=== PATIENT | female | born 1985 | race Native Hawaiian/Other Pacific Islander ===

== ENCOUNTER 2023-08-09 13:39 | Outpatient (CLI) | payer OTHER ==
[2023-08-09 14:27] LABS: Appearance,Urine Cloudy (Clear); Bacteria,Urine Rare /hpf; Bilirubin,Urine Negative (Negative); Blood,Urine Moderate (Negative); Color,Urine Yellow; Glucose,Urine (UA) Negative (Negative); Ketones,Urine Negative (Negative); Leukocyte Esterase,Urine Negative (Negative); Mucus,Urine Few /hpf; Nitrite,Urine Negative (Negative); PH, Urine 6.5 (5.0-8.0); Protein,Urine 1+ (Negative); RBC,Urine 2 /hpf (0-5); Specific Gravity,Urine 1.026 (1.001-1.035); Squamous Epithelial Cell,Urine 8 /hpf (0-4); Urobilinogen,Urine <2.0 mg/dL (<2.0); WBC,Urine 7 /hpf (0-5)
[2023-08-09 14:38] VITALS: BP 108/63; PULSE 80; RESP 16; TEMP 97.3
--- NOTE | 2023-08-16 03:02 | P.MSEPDOC ---
Presenting Problems - Arrival Data Date of Arrival on Unit: 08/09/23 Time of Arrival on Unit: 13:39 Mode of Transport: Ambulatory - Complaint OB-Reason for Admission/Chief Complaint: Vaginal Bleeding Medical History - Information : 3 Para: 2 Term: 1 : 0 Abortions: Spontaneous or Elective: 1 Number of Living Children: 1 - Gestational Age Gestational Age by MANUEL (wks/days): 24 Weeks and 1 Days - History Complications: Smoker Review of Systems - Review of Systems Constitutional: No problems Breast: No problems ENT: No problems Cardiovascular: No problems Respiratory: No problems Gastrointestinal: No problems Genitourinary: No problems Musculoskeletal: No problems Neurological: No problems Skin: No problems Vital Signs - Temperature Temperature: 97.3 F Temperature Source: Temporal Artery Scan - Pulse Pulse Oximetery Pulse Rate: 80 Pulse Assessment Method: Auscultation - Respirations Respiratory Rate: 16 Oxygen Delivery Method: Room Air O2 Sat by Pulse Oximetry: 98 - Blood Pressure Right Arm Blood Pressure: 108/63 Blood Pressure Mean: 78 Blood Pressure Source: Automatic Cuff Medical Screen Scoring - Cervical Exam Membranes: Intact - Assessment - Baby A Baseline FHR: 145 Physician Notification - Physician Notified Physician Notified Date: 08/09/23 Physician Notified Time: 13:50 Physician: Dr. Elizondo New Order Received: Yes - Notification Comment Comment: Dr. Elizondo notified of pt's arrival to [facility] with c/o pink-tinged vaginal. spotting approximately 4-5x since last night. Maternal status and FHTs reviewed with. physician. Orders to send a UA, collect an FFN, and complete a SVE. Orders repeated and. confirmed. Maternal Triage Index - Maternal Triage Index Presenting for scheduled procedure w/no complaint: No - Stat/Priority 1 Stat Priority 1: No - Urgent/Priority 2 Urgent Priority 2: Yes Provider Notified: Judy Elizondo Provider Notified Time: 13:50 Criteria Met for Priority 2: Pt is a with MANUEL 11/28/22 here at 24.1 weeks of gestation with c/o spotting. since last night. Pt reported having pink-tinged spotting on the toilet paper when. wiping after using the restroom x4-5 times since last night. Pt reported that she called. the doctor line with [facility] early this morning and came in after they responded this. afternoon. Pt denies any complications with the , states she has an U/S. tomorrow. Disposition - Disposition OB Disposition: Discharge to home Discharge Date: 08/09/23 Discharge Time: 14:43 I agree with the RN Medical Screening Exam: Yes Case reviewed; plan agreed upon as documented in EMR&OBIX.: Yes Diagnosis: SPOTTING COMPLICATING , SECOND TRIMESTER
== END 2023-08-09 14:43 | disposition home or self-care (01) ==
LOC: FBPOP 13:39
PROVIDERS: ATTEND Obstetrics & Gynecology
DX: O26.852 Spotting complicating pregnancy, second trimester (principal); O99.332 Smoking (tobacco) complicating pregnancy, second trimester; F17.200 Nicotine dependence, unspecified, uncomplicated; Z3A.24 24 weeks gestation of pregnancy
CPT/HCPCS: 81001; G0463; 99213

== ENCOUNTER 2023-11-23 05:55 | Inpatient (IN) | payer OTHER ==
--- NOTE | 2023-11-22 17:07 | P.HPOB ---
History of Present Illness H&P Date: 11/22/23 Chief Complaint: Induction of labor This is a 38 y.o. female, 3, para 1, with an estimated date of confinement of 11/28/2023, estimated gestational age of 39-2/7 weeks who presents for induction due to advanced maternal age. She has been doing surveillance and does have occasional variable decelerations. Amniotic fluid levels have been normal and she has good movement. She has irregular contractions. Her ultrasound on 11/21 shows an estimated weight of 8#11oz(>90%). labs: GC/Chlamydia/Trich-neg [id number] Blood type-O+ Antibody screen-neg Rubella-immune RPR-NR HIV-NR Hepatitis C-neg Hepatitis B surface antigen-neg 1 hr. GTT-126 GBS-neg OB Hx: . History of 1 vaginal delivery at term. 1 miscarriage. 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 Social Hx: Single. Works from home. Review of Systems Constitutional: Denies chills, Denies fever Eyes: denies blurred vision, denies pain Ears, nose, mouth and throat: Denies headache, Denies sore throat Cardiovascular: Denies chest pain, Denies shortness of breath Respiratory: Denies cough Gastrointestinal: Reports abdominal pain (irregular contractions) Genitourinary: Reports pelvic pain, Reports Musculoskeletal: Reports low back pain Integumentary: Denies pruritus, Denies rash Neurological: Denies numbness, Denies weakness Psychiatric: Denies anxiety, Denies depression Past Medical History Past Medical History: No Reported History History of Any Multi-Drug Resistant Organisms: None Reported Additional Past Surgical History / Comment(s): D&C Past Anesthesia/Blood Transfusion Reactions: No Reported Reaction Past Psychological History: No Psychological Hx Reported Smoking Status: Former smoker Past Alcohol Use History: None Reported Past Drug Use History: None Reported - Past Family History Mother Family Medical History: No Reported History Medications and Allergies Home Medications Medication Instructions Recorded Confirmed Type Aspirin [Snyder Aspirin EC] 81 mg PO DAILY 08/09/23 08/09/23 History Vit No.179/Iron/Folic 1 tablet PO DAILY 08/09/23 08/09/23 History [ Tablet] Allergies Allergy/AdvReac Type Severity Reaction Status Date / Time No Known Allergies Allergy Verified 08/09/23 14:06 Exam Osteopathic Statement: *. No significant issues noted on an osteopathic structural exam other than those noted in the History and Physical/Consult. HEENT: within normal limits Heart: regular rate and rhythm Lungs: clear to auscultation bilaterally Abdomen: , non-tender heart tones: 140's by doppler Cervix: 3-3.5 cm/70%/-2 Extremities: neg. Winston's Assessment and Plan (1) 39 weeks gestation of Status: Acute Code(s): Z3A.39 - 39 WEEKS GESTATION OF SNOMED Code(s): 93141792 (2) Advanced maternal age (AMA) in Status: Acute Code(s): MSZ2274 - SNOMED Code(s): 796344828 Plan: Proceed with oxytocin induction of labor. Expectant management. Epidural anesthesia if desired.
[2023-11-23] MEDS ORDERED: LIDOCAINE 0.5% (PF) 5 MG/ML (50 ML SDV) SQ PRN ×2 (06:13→06:55)
[2023-11-23] MEDS ORDERED: TRANEXAMIC 1,000 MG/100ML-NACL 1,000 MG in EMPTY BAG 1 BAG IV PRN ×2 (06:13→06:55)
[2023-11-23] MEDS ORDERED: OXYTOCIN 30 UNITS/500 ML NS 30 UNIT in SALINE 1 500ML.BAG IV SCH ×2 (06:13→13:11)
[2023-11-23] MEDS ORDERED: METHYLERGONOVINE 0.2 MG/ML 1 ML AMP IM PRN ×2 (06:13→06:55)
[2023-11-23] MEDS ORDERED: CARBOPROST TROMETHAMINE 250 MCG/ML 1 ML AMP IM PRN ×2 (06:13→06:55)
[2023-11-23] MEDS ORDERED: miSOPROStoL 200 MCG TAB PO PRN ×2 (06:13→06:55)
[2023-11-23] MEDS ORDERED: TERBUTALINE 1 MG/ML VIAL SQ PRN ×2 (06:13→06:55)
[2023-11-23] MEDS ORDERED: OXYTOCIN 10 UNIT/ML 1 ML VIAL IM PRN ×2 (06:13→06:55)
[2023-11-23] MEDS ORDERED: LIDOCAINE 1% (10MG/ML) FOR IV START INTRADERMA PRN (06:13)
[2023-11-23 06:23] LABS: Basophils # (A) 0.1 k/uL (0-0.2); Basophils % (A) 0 %; Eosinophils # (A) 0.3 k/uL (0-0.7); Eosinophils % (A) 2 %; HCT 37.8 % (34.0-46.0); HGB 12.7 gm/dL (11.4-16.0); Lymphocytes # (A) 2.5 k/uL (1.0-4.8); Lymphocytes % (A) 23 %; MCH 32.7 pg (25.0-35.0); MCHC 33.5 g/dL (31.0-37.0); MCV 97.6 fL (80.0-100.0); Mean Platelet Volume 11.3; Monocytes # (A) 0.6 k/uL (0-1.0); Monocytes % (A) 5 %; Neutrophils # (A) 7.5 k/uL (1.3-7.7); Neutrophils % (A) 67 %; Platelet Count 274 k/uL (150-450); RBC 3.88 m/uL (3.80-5.40); RDW 13.1 % (11.5-15.5); WBC 11.2 k/uL (3.8-10.6)
[2023-11-23] MEDS: LACTATED RINGERS 1,000 ML IV SCH ×3 (06:28→11:48)
[2023-11-23] MEDS ORDERED: ROPIVACAINE 5 MG/ML 30 ML VIAL ONE (09:04)
[2023-11-23] MEDS ORDERED: SODIUM CHLORIDE 0.9% 250 ML BAG ONE (09:04)
[2023-11-23] MEDS ORDERED: fentaNYL (PF) 50 MCG/ML 5 ML AMP ONE (09:04)
--- NOTE | 2023-11-23 13:07 | P.PROBDLV ---
Vaginal Delivery Note - . Vaginal Delivery Note: He should progressed to complete dilation after oxytocin induction of labor and artificial rupture membranes with clear fluid noted. She did receive epidural anesthesia. Once reaching complete, she began pushing. She pushed for a few pushes and 's head came to a crown. With one further push, the infant's head delivered in a right occiput anterior lie. The anterior or left shoulder did not immediately release with one further push. A shoulder dystocia was diagnosed. I was unable to reach in and palpate the anterior shoulder. I was able to reach the backside of the posterior or right shoulder. I was able to MY finger underneath the armpit and slowly rotate in a counterclockwise fashion as she gave one further push. This did rotate the posterior shoulder into position that the posterior shoulder delivered first followed by the anterior shoulder and the remainder of the infant. Infant was then placed on mother's abdomen and cord was clamped and cut. Nose and mouth were bulb suctioned. Infant was evaluated by nursing staff. A viable male is noted with scores of 9 at 1 minute and 9 at 5 minutes and weight of 8 pounds 6.7 ounces. Placenta delivered shortly thereafter, intact, with a three-vessel cord. Uterus initially firmed up with uterine massage but then became boggy. A gloved hand was placed within the uterine cavity and no further placental tissue was palpated. Uterus was massaged again and oxytocin was given. Her bladder was also drained. Uterus did finally firm up. Inspection of the perineum revealed a small first-degree perineal laceration. This area was anesthetized with 1% lidocaine and then sutured with 3-0 Vicryl suture in a running locked fashion. Estimated blood loss is approximately 200 mL's. Both mother and infant are in stable condition. Patient was advised about the shoulder dystocia and advised that if in the future she decides to have another child that she should have a delivery. Patient states she plans to have a tubal ligation.
[2023-11-23] MEDS ORDERED: SIMETHICONE 80 MG CHEWABLE PO PRN (13:11)
[2023-11-23] MEDS ORDERED: LANOLIN CREAM 5 GM TUBE TOPICAL PRN (13:11)
[2023-11-23] MEDS ORDERED: diphenhydrAMINE 25 MG CAP PO PRN (13:11)
[2023-11-23] MEDS ORDERED: ACETAMINOPHEN TAB 325 MG TAB PO PRN (13:11)
[2023-11-23] MEDS ORDERED: diphenhydrAMINE 50 MG CAP PO PRN (13:11)
[2023-11-23] MEDS ORDERED: ZOLPIDEM 5 MG TAB PO PRN (13:11)
[2023-11-23] MEDS ORDERED: HYDROCORTISONE 2.5% RECTAL CREAM 30 GM TUBE RECTAL PRN (13:11)
[2023-11-23] MEDS ORDERED: diphenhydrAMINE 50 MG/ML 1 ML VIAL IVP PRN ×2 (13:11)
[2023-11-23] MEDS: BENZOCAINE/MENTHOL SPRAY 1 GM/SPRAY AEROSOL TOPICAL PRN ×2 (13:14→17:20)
[2023-11-23] MEDS: IBUPROFEN 600 MG TAB PO PRN ×2 (13:32→21:05)
[2023-11-23] MEDS: PRENATAL VIT-IRON-FOLIC ACID 1 EACH TABLET PO SCH (17:20)
[2023-11-23] MEDS: SENNOSIDES-DOCUSATE SODIUM 1 EACH TAB PO SCH (20:44)
[2023-11-24] MEDS: IBUPROFEN 600 MG TAB PO PRN (05:48)
[2023-11-24 07:48] LABS: Basophils % (A) 0 %; Eosinophils # (A) 0.2 k/uL (0-0.7); Eosinophils % (A) 1 %; HCT 32.3 % (34.0-46.0); HGB 10.7 gm/dL (11.4-16.0); Lymphocytes # (A) 1.9 k/uL (1.0-4.8); Lymphocytes % (A) 13 %; MCHC 33.1 g/dL (31.0-37.0); MCV 96.8 fL (80.0-100.0); Monocytes # (A) 0.6 k/uL (0-1.0); Monocytes % (A) 4 %; Neutrophils % (A) 80 %; Platelet Count 201 k/uL (150-450); RBC 3.33 m/uL (3.80-5.40); RDW 12.9 % (11.5-15.5)
[2023-11-24] MEDS: SENNOSIDES-DOCUSATE SODIUM 1 EACH TAB PO SCH (08:38)
[2023-11-24] MEDS: PRENATAL VIT-IRON-FOLIC ACID 1 EACH TABLET PO SCH (08:44)
--- NOTE | 2023-11-24 09:15 | P.DS ---
Providers Date of admission: 11/23/23 05:55 Expected date of discharge: 11/24/23 Attending physician: Judy Elizondo Primary care physician: Stated None - Discharge Diagnosis(es) (1) 39 weeks gestation of Current Visit: No Status: Acute (2) Advanced maternal age (AMA) in Current Visit: No Status: Acute Hospital Course: This is a 38-year-old female 3 para 1 at 39-2/7 weeks who presented for induction of labor. She underwent oxytocin induction of labor and delivered vaginally a viable male with scores of 9 at 1 minute and 9 at 5 minutes and infant weight of 8 pounds 6.7 ounces. Her delivery was complicated by shoulder dystocia that was relieved within 1 minute using delivery of the posterior shoulder first. See dictated delivery note for details. Her course has been uncomplicated. Lochia has been decreasing. Her pain is fairly well controlled. She does complain of some periumbilical discomfort and has not been passing very much gas lately. She is breast-feeding without difficulty. Vital signs are stable. Abdomen is soft with positive bowel sounds 4. Fundus is firm and nontender. Extremities show negative Homans. Impression is status post vaginal delivery day #1. Plan is to discharge home today. Routine postoperative and instructions are given. She is advised follow-up in the office in 6 weeks for a check. She is advised to call the office if she has any further questions or concerns prior to her appointment time. She again was counseled regarding shoulder dystocia and the need for delivery if she does have any further children. She states she plans to have a tubal ligation. She will be given a prescription for ibuprofen. Procedures: Spontaneous vaginal delivery of a viable male on 11/23/2023 complicated by shoulder dystocia Patient Condition at Discharge: Stable Plan - Discharge Summary New Discharge Prescriptions: New Ibuprofen [Motrin] 600 mg PO Q6HR PRN #60 tab PRN Reason: Mild Pain (Scale 1 To 3) Discontinued Aspirin [Rowe Aspirin EC] 81 mg PO DAILY No Action Vit No.179/Iron/Folic [ Tablet] 1 tablet PO DAILY Discharge Medication List Vit No.179/Iron/Folic [ Tablet] 1 tablet PO DAILY 08/09/23 [History] Ibuprofen [Motrin] 600 mg PO Q6HR PRN #60 tab 11/24/23 [Rx] Follow up Appointment(s)/Referral(s): Judy Elizondo DO [Doctor of Osteopathic Medicine] - 01/03/24 11:30 am Activity/Diet/Wound Care/Special Instructions: Instructions 1. Do not begin any exercise program for 3 weeks. 2. Do not resume sexual relations for 3 weeks or longer if uncomfortable. 3. You may take tub baths or showers at any time. 4. You may use tampons if desired after 3 weeks. 5. Keep the area of episiotomy (stitches) clean and dry. 6. If you are not nursing, wear a good fitting, supportive bra during the day and limit fluid intake for at least 1 week to prevent breast engorgement. 7. Call the office, [phone], within the next week to make appointment for your 6 week checkup if it has not already been made. 8. Report any of the following occurrences to the doctor promptly: a. Heavy, excessive bleeding b. Chills, fever c. Burning or frequency of urination d. Pain or redness and breasts if nursing e. Increasing pain or swelling in episiotomy (stitches). In addition to the above instructions, the following additional should be followed: 1. No heavy lifting or straining (exercising) until after 6 week checkup. 2. Keep abdominal incision clean and dry: You may wear a dressing if more comfortable. 3. Make office appointment for 10 days after going home or as instructed by her doctor. Discharge Disposition: HOME SELF-CARE
[2023-11-24] MEDS ORDERED: oxyCODONE-APAP 5-325MG 1 EACH TAB PO STA (10:04)
[2023-11-24 11:16] VITALS: BP 122/59; PULSE 72; RESP 16; TEMP 97.7
--- NOTE | 2023-11-24 12:37 | P.PN ---
Progress Note - Text Progress Note Date: 11/24/23 I was called to see this patient regards to periumbilical pain. Apparently the patient was feeling some mid abdominal discomfort this morning was seen by Dr. Elizondo. At that time she was felt to have a small periumbilical hernia. Patient's had no nausea or vomiting. Patient had an episode where the pain was significantly worse. I did give her 1 oral pain medication. Examination shows her abdomen to be soft. There is no rebound or guarding. Patient is resting comfortably in her bed and does not appear to be in any discomfort. At this time I believe this was an isolated episode of discomfort from the small umbilical hernia. There is no evidence of incarceration or strangulation. I advised her to watch for signs and symptoms of this and feel that she is comfortable to go home at this time.
== END 2023-11-24 14:45 | disposition home or self-care (01) | DRG 560 ==
LOC: 4FBP 05:55
PROVIDERS: ADMIT Obstetrics & Gynecology; ATTEND Obstetrics & Gynecology
PROC: 10E0XZZ Delivery of Products of Conception, External Approach (ICD-10-PCS; principal; 2023-11-23)
PROC: 0HQ9XZZ Repair Perineum Skin, External Approach (ICD-10-PCS; 2023-11-23)
PROC: 10907ZC Drainage of Amniotic Fluid, Therapeutic from Products of Conception, Via Natural or Artificial Opening (ICD-10-PCS; 2023-11-23)
PROC: 3E033VJ Introduction of Other Hormone into Peripheral Vein, Percutaneous Approach (ICD-10-PCS; 2023-11-23)
PROC: 4A0HXCZ Measurement of Products of Conception, Cardiac Rate, External Approach (ICD-10-PCS; 2023-11-23)
DX: O76 Abnormality in fetal heart rate and rhythm complicating labor and delivery (principal); O66.0 Obstructed labor due to shoulder dystocia; O70.0 First degree perineal laceration during delivery; O99.62 Diseases of the digestive system complicating childbirth; K42.9 Umbilical hernia without obstruction or gangrene; Z79.82 Long term (current) use of aspirin; Z87.891 Personal history of nicotine dependence; Z3A.39 39 weeks gestation of pregnancy; Z37.0 Single live birth
CPT/HCPCS: 85025; 86850; 86900; 86901

== ENCOUNTER 2023-12-16 15:30 | Emergency (ER) | payer OTHER ==
[2023-12-16 16:05] VITALS: RESP 18
--- NOTE | 2023-12-16 16:39 | ED ---
Female Urogenital HPI - General Chief complaint: Vaginal Bleeding Stated complaint: post baby blood clots Time Seen by Provider: 12/16/23 16:32 Source: patient, RN notes reviewed Mode of arrival: ambulatory Limitations: no limitations - History of Present Illness Initial comments: Patient is a 38-year-old female presenting to the ER with a chief complaint of vaginal bleeding. Patient is 3 weeks post vaginal delivery. Delivery was uncomplicated. Patient states about an hour prior to arrival she started having large clots passed from her vagina. Patient states it has been continuous since. Patient denies any blood thinner use, chest pain, shortness of breath, lightheaded/dizziness. Denies any fevers, chills, night sweats. - Related Data Home Medications Medication Instructions Recorded Confirmed Vit No.179/Iron/Folic 1 tablet PO DAILY 08/09/23 11/23/23 [ Tablet] Previous Rx's Medication Instructions Recorded Ibuprofen [Motrin] 600 mg PO Q6HR PRN #60 tab 11/24/23 Allergies Allergy/AdvReac Type Severity Reaction Status Date / Time No Known Allergies Allergy Verified 12/16/23 16:04 Review of Systems ROS Statement: Those systems with pertinent positive or pertinent negative responses have been documented in the HPI. ROS Other: All systems not noted in ROS Statement are negative. Past Medical History Past Medical History: No Reported History History of Any Multi-Drug Resistant Organisms: None Reported Additional Past Surgical History / Comment(s): D&C Past Anesthesia/Blood Transfusion Reactions: No Reported Reaction Past Psychological History: No Psychological Hx Reported Smoking Status: Current some day smoker Past Alcohol Use History: None Reported Past Drug Use History: None Reported - Past Family History Mother Family Medical History: No Reported History General Exam Limitations: no limitations General appearance: alert, in no apparent distress Head exam: Present: atraumatic, normocephalic, normal inspection Respiratory exam: Present: normal lung sounds bilaterally. Absent: respiratory distress, wheezes, rales, rhonchi, stridor Cardiovascular Exam: Present: regular rate, normal rhythm, normal heart sounds. Absent: systolic murmur, diastolic murmur, rubs, gallop, clicks GI/Abdominal exam: Present: soft, normal bowel sounds. Absent: distended, tenderness, guarding, rebound, rigid Course Vital Signs 12/16/23 12/16/23 15:59 18:42 Temperature 98.4 F 98.3 F Pulse Rate 105 H 80 Respiratory 18 18 Rate Blood Pressure 106/61 139/81 O2 Sat by Pulse 98 98 Oximetry - Reevaluation(s) Reevaluation #1: 12/16/23 18:[address] Estevez who agrees with care plan. Reports patient is safe for discharge. Medical Decision Making - Medical Decision Making Was pt. sent in by a medical professional or institution (, PA, FORM RAISER, urgent care, hospital, or [facility]...) When possible be specific @ -No Did you speak to anyone other than the patient for history (EMS, parent, family, police, friend...)? What history was obtained from this source @ -No Did you review nursing and triage notes (agree or disagree)? Why? @ -I reviewed and agree with nursing and triage notes Were old charts reviewed (outside hosp., previous admission, EMS record, old EKG, old radiological studies, urgent care reports/EKG's, [facility] records)? Report findings @ -No old charts were reviewed Differential Diagnosis (chest pain, altered mental status, abdominal pain women, abdominal pain men, vaginal bleeding, weakness, fever, dyspnea, syncope, headache, dizziness, GI bleed, back pain, seizure, CVA, palpatations, mental health, musculoskeletal)? @ -Differential Vaginal Bleeding: Spontaneous , threatened , molar , ectopic , bloody show, incompetent cervix, abruptioplacenta, placenta previa, uterine rupture, dysfunctional uterine bleeding, hemorrhage, uterine fibroids, this is not meant to be an all-inclusive list. EKG interpreted by me (3pts min.). @ -None X-rays interpreted by me (1pt min.). @ -None done CT interpreted by me (1pt min.). @ -None done U/S interpreted by me (1pt. min.). @ -Pelvic ultrasound shows no acute process. What testing was considered but not performed or refused? (CT, X-rays, U/S, labs)? Why? @ -None What meds were considered but not given or refused? Why? @ -None Did you discuss the management of the patient with other professionals (p rofessionals i.e. , PA, FORM RAISER, lab, RT, psych nurse, criminal justice social worker, electronic instrument trades worker, teacher, natural resource officer, disability case manager)? Give summary @ -Yes I spoke with Dr. Estevez on-call SALES COORDINATOR who states that it can be normal to have bleeding 3 to 4 weeks . Patient followed up with SALES COORDINATOR as scheduled. Was smoking cessation discussed for >3mins.? @ -No Was critical care preformed (if so, how long)? @ -No Were there social determinants of health that impacted care today? How? (Homelessness, low income, unemployed, alcoholism, drug addiction, transportation, low edu. Level, literacy, decrease access to med. care, shelter, rehab)? @ -No Was there de-escalation of care discussed even if they declined (Discuss DNR or withdrawal of care, Hospice)? DNR status @ -No What co-morbidities impacted this encounter? (DM, HTN, Smoking, COPD, CAD, Cancer, CVA, ARF, Chemo, Hep., AIDS, mental health diagnosis, sleep apnea, morbid obesity)? @ -None Was patient admitted / discharged? Hospital course, mention meds given and route, prescriptions, significant lab abnormalities, going to OR and other pertinent info. @ -Discharge. Patient is a 38-year-old female presented to ER with a chief complaint of vaginal bleeding. Patient is 3 weeks . History and physical exam were completed. Vital stable. Pelvic exam significant for mild cervical bleeding. Labs from the ER unremarkable. Hemoglobin stable at 12.1. Serum hCG less than 2.4. Urine without signs of infection. Ultrasound negative for signs of retained products. I discussed this case with Dr. Estevez on-call SALES COORDINATOR who states that it can be normal to have 3 to 4 weeks bleeding. She recommended patient follow-up outpatient. Discussed lab and imaging findings with patient. Return parameters were discussed patient be discharged stable condition with follow-up to SALES COORDINATOR. Patient expressed understanding and agreement with care plan. Undiagnosed new problem with uncertain prognosis? @ -No Drug Therapy requiring intensive monitoring for toxicity (Heparin, Nitro, Insulin, Cardizem)? @ -No Were any procedures done? @ -No Diagnosis/symptom? @ - bleeding Acute, or Chronic, or Acute on Chronic? @ -Acute Uncomplicated (without systemic symptoms) or Complicated (systemic symptoms)? @ -Uncomplicated Side effects of treatment? @ -No Exacerbation, Progression, or Severe Exacerbation? @ -No Poses a threat to life or bodily function? How? (Chest pain, [place], [place], pneumonia, PE, COPD, DKA, ARF, appy, cholecystitis, CVA, Diverticulitis, Homicidal, Suicidal, threat to staff... and all critical care pts) @ -No - Lab Data Result diagrams: 12/16/23 17:07 12/16/23 17:07 Lab Results 12/16/23 12/16/23 12/16/23 Range/Units 16:05 17:07 17:07 WBC 8.2 (3.8-10.6) k/uL RBC 3.77 L (3.80-5.40) m/uL Hgb 12.1 (11.4-16.0) gm/dL Hct 36.2 (34.0-46.0) % MCV 96.0 (80.0-100.0) fL MCH 32.2 (25.0-35.0) pg MCHC 33.5 (31.0-37.0) g/dL RDW 12.5 (11.5-15.5) % Plt Count 221 (150-450) k/uL MPV 10.0 Sodium 140 (137-145) mmol/L Potassium 3.9 (3.5-5.1) mmol/L Chloride 111 H (98-107) mmol/L Carbon Dioxide 19 L (22-30) mmol/L Anion Gap 10 mmol/L BUN 21 H (7-17) mg/dL Creatinine 0.59 (0.52-1.04) mg/dL Est GFR (CKD-EPI)AfAm >90 (>60 ml/min/1.73 sqM) Est GFR (CKD-EPI)NonAf >90 (>60 ml/min/1.73 sqM) Glucose 142 H (74-99) mg/dL Calcium 8.8 (8.4-10.2) mg/dL Total Bilirubin 0.4 (0.2-1.3) mg/dL AST 42 H (14-36) U/L ALT 50 H (4-34) U/L Alkaline Phosphatase 90 (38-126) U/L Total Protein 6.4 (6.3-8.2) g/dL Albumin 3.6 (3.5-5.0) g/dL HCG, Quant <2.4 mIU/mL Urine Color Light Red Urine Appearance Clear (Clear) Urine pH 5.5 (5.0-8.0) Ur Specific [place] 1.028 (1.001-1.035) Urine Protein 1+ H (Negative) Urine Glucose (UA) Negative (Negative) Urine Ketones Negative (Negative) Urine Blood Large H (Negative) Urine Nitrite Negative (Negative) Urine Bilirubin Negative (Negative) Urine Urobilinogen <2.0 (<2.0) mg/dL Ur Leukocyte Esterase Moderate H (Negative) Urine RBC >182 H (0-5) /hpf Urine WBC 18 H (0-5) /hpf Urine Mucus Occasional H (None) /hpf - Radiology Data Radiology results: report reviewed, image reviewed Disposition Clinical Impression: bleeding Disposition: HOME SELF-CARE Condition: Stable Instructions (If sedation given, give patient instructions): Bleeding (ED) Additional Instructions: Please follow-up with Dr. Elizondo as scheduled. Return to ER for any new or worsening symptoms. Is patient prescribed a controlled substance at d/c from ED?: No Referrals: None,Stated [Primary Care Provider] - 1-2 days Time of Disposition: 18:24
[2023-12-16 17:07] LABS: Appearance,Urine Clear (Clear); Bilirubin,Urine Negative (Negative); Blood,Urine Large (Negative); Color,Urine Light Red; Glucose,Urine (UA) Negative (Negative); Ketones,Urine Negative (Negative); Leukocyte Esterase,Urine Moderate (Negative); Mucus,Urine Occasional /hpf; Nitrite,Urine Negative (Negative); PH, Urine 5.5 (5.0-8.0); Protein,Urine 1+ (Negative); RBC,Urine >182 /hpf (0-5); Specific Gravity,Urine 1.028 (1.001-1.035); Urobilinogen,Urine <2.0 mg/dL (<2.0); WBC,Urine 18 /hpf (0-5)
[2023-12-16 17:22] LABS: HCT 36.2 % (34.0-46.0); HGB 12.1 gm/dL (11.4-16.0); MCH 32.2 pg (25.0-35.0); MCHC 33.5 g/dL (31.0-37.0); Platelet Count 221 k/uL (150-450); RBC 3.77 m/uL (3.80-5.40); RDW 12.5 % (11.5-15.5); WBC 8.2 k/uL (3.8-10.6)
--- NOTE | 2023-12-16 17:26 | US ---
EXAMINATION TYPE: US pelvic complete DATE OF EXAM: 12/16/2023 COMPARISON: NONE CLINICAL INDICATION: Female, 38 years old with history of bleeding post vag delivery 3 weeks ago; pas sing blood clots today x a few hours, vaginal delivery 3 weeks ago TECHNIQUE: Transabdominal (TA). Transabdominal sonographic images of the pelvis were acquired. TV deferred due to recent vag delivery Date of LMP: post EXAM MEASUREMENTS: Uterus: 9.0x4.8x7.1 cm Endometrial Stripe: 1.1 cm Right Ovary: 1.8x1.4x1.3 cm Left Ovary: 3.4x2.0x2.4 cm 1. Uterus: Anteverted wnl 2. Endometrium: wnl 3. Right Ovary: wnl 4. Left Ovary: wnl 5. Bilateral Adnexa: wnl 6. Posterior cul-de-sac: wnl post pelvis IMPRESSION: No significant abnormality appreciated.
[2023-12-16 17:33] LABS: ALT 50 U/L (4-34); AST 42 U/L (14-36); African American GFR (CKD) >90 (>60 ml/min/1.73 sqM); Albumin 3.6 g/dL (3.5-5.0); Alkaline Phosphatase 90 U/L (38-126); Anion Gap 10 mmol/L; Blood Urea Nitrogen 21 mg/dL (7-17); Calcium 8.8 mg/dL (8.4-10.2); Carbon Dioxide 19 mmol/L (22-30); Chloride 111 mmol/L (98-107); Glucose 142 mg/dL (74-99); Non-African American GFR(CKD) >90 (>60 ml/min/1.73 sqM); Potassium 3.9 mmol/L (3.5-5.1); Sodium 140 mmol/L (137-145); Total Bilirubin 0.4 mg/dL (0.2-1.3); Total Protein 6.4 g/dL (6.3-8.2)
[2023-12-16 17:49] LABS: HCG,Quantitative Serum <2.4 mIU/mL
[2023-12-16 18:44] VITALS: BP 139/81; PULSE 80; TEMP 98.3
== END 2023-12-16 18:44 | disposition home or self-care (01) ==
LOC: EC 15:30
DX: O72.1 Other immediate postpartum hemorrhage (principal); O99.335 Smoking (tobacco) complicating the puerperium; F17.200 Nicotine dependence, unspecified, uncomplicated
CPT/HCPCS: 36415; 76856; 80053; 81001; 84702; 85027; 87086; 99284

== ENCOUNTER 2024-01-19 07:26 | Day surgery (SDC) | payer OTHER ==
[2024-01-16 13:08] VITALS: BMI 26.6
--- NOTE | 2024-01-18 20:12 | P.HPOB ---
History of Present Illness H&P Date: 01/18/24 Chief Complaint: Family-planning This is a 38-year-old female 3 para 2 who presents for laparoscopic bilateral tubal ligation via fulguration for family-planning. She is recently and would like permanent sterilization. Obstetrical history: . History of 2 vaginal deliveries at term and 1 miscarriage. Her second delivery was complicated by shoulder dystocia. Gynecologic history: She does have a history of gonorrhea treated many years ago. Social history: She is single. She works for the [employer]. Review of Systems Constitutional: Denies chills, Denies fever Eyes: denies blurred vision, denies pain Ears, nose, mouth and throat: Denies headache, Denies sore throat Cardiovascular: Denies chest pain, Denies shortness of breath Respiratory: Denies cough Gastrointestinal: Denies abdominal pain, Denies diarrhea, Denies nausea, Denies vomiting Genitourinary: Denies dysuria, Denies hematuria Past Medical History Past Medical History: No Reported History History of Any Multi-Drug Resistant Organisms: None Reported Additional Past Surgical History / Comment(s): D&C. Past Anesthesia/Blood Transfusion Reactions: No Reported Reaction Past Psychological History: No Psychological Hx Reported Smoking Status: Current some day smoker Past Alcohol Use History: Occasional Additional Past Alcohol Use History / Comment(s): Smokes 2 cigarettes daily, started around age 18. Past Drug Use History: None Reported - Past Family History Mother Family Medical History: No Reported History Medications and Allergies Home Medications Medication Instructions Recorded Confirmed Type Vit No.179/Iron/Folic 1 tablet PO DAILY 08/09/23 01/16/24 History [ Tablet] Allergies Allergy/AdvReac Type Severity Reaction Status Date / Time No Known Allergies Allergy Verified 01/16/24 12:29 Exam Osteopathic Statement: *. No significant issues noted on an osteopathic structural exam other than those noted in the History and Physical/Consult. HEENT: Within normal limits Heart: Regular rate and rhythm Lungs: Clear to auscultation bilaterally Abdomen: Soft, nontender Pelvic exam: Uterus is retroverted, nontender, with no adnexal masses or tenderness noted. Extremities: Negative Homans Assessment and Plan (1) Family planning Status: Acute Code(s): Z30.09 - ENCOUNTER FOR OTH GENERAL CNSL AND ADVICE ON CONTRACEPTION SNOMED Code(s): 757393409 Plan: Proceed with laparoscopic bilateral tubal ligation via fulguration. I have discussed the risks, benefits, and alternative therapies for the above- mentioned procedure and for both sedation/anesthesia as well as necessary blood products administration, if indicated, as they pertain to this patient. The patient has indicated her understanding and acceptance of the risks and procedures discussed.
[~2024-01-19 07:26] MED LIST: Pre Op ABX Message 1 EACH MISC MISCELLANE ONE
[2024-01-19] MEDS ORDERED: HYDROmorphone 0.5 MG/0.5 ML SYRINGE IVP PRN (07:37)
[2024-01-19] MEDS: LACTATED RINGERS 1,000 ML IV SCH (08:23)
[2024-01-19] MEDS: FAMOTIDINE 20 MG/2 ML VIAL IVP ONE (08:32)
[2024-01-19] MEDS: DEXAMETHASONE SOD PHOSPHATE 4 MG/ML 1 ML VIAL IV ONE (08:32)
[2024-01-19] MEDS: ONDANSETRON 4 MG/2 ML VIAL IVP ONE (08:32)
[2024-01-19] MEDS ORDERED: KETOROLAC 15 MG/ML 1 ML VIAL ONE (08:58)
[2024-01-19] MEDS ORDERED: SUCCINYLCHOLINE CHLORIDE 200 MG/10 ML VIAL IV ONE (08:58)
[2024-01-19] MEDS ORDERED: fentaNYL (PF) 50 MCG/ML 2 ML AMP ONE (08:58)
[2024-01-19] MEDS ORDERED: PROPOFOL 10 MG/ML 20 ML VIAL IV ONE (08:58)
[2024-01-19] MEDS ORDERED: LIDOCAINE 1% INJ 10MG/ML (20 ML MDV) ONE (08:58)
[2024-01-19] MEDS ORDERED: MIDAZOLAM 2 MG/2 ML VIAL ONE (08:58)
[2024-01-19 09:03] VITALS: RESP 16
[2024-01-19] MEDS: BUPIVACAINE (PF) 0.25% 30 ML VIAL SQ ONE ×2 (09:31)
--- NOTE | 2024-01-19 09:39 | P.OP ---
Date of Procedure: 01/19/24 Preoperative Diagnosis: Family planning Postoperative Diagnosis: Same Procedure(s) Performed: Laparoscopic bilateral tubal ligation via fulguration Anesthesia: MARIAH Surgeon: Judy Elizondo Estimated Blood Loss (ml): 5 Pathology: none sent Condition: stable Disposition: same day Indications for Procedure: This is a 38-year-old female 3 para 2 who presents for laparoscopic bilateral tubal ligation via fulguration for family-planning. She is recently and would like permanent sterilization. Operative Findings: Uterus is midposition, sounded to 7 cm. Normal uterus tubes and ovaries are noted. Description of Procedure: The patient is taken to the operating room where she is placed in the dorsal lithotomy position. She is prepped and draped in the normal sterile fashion. Examination is performed under anesthesia. Uterus is found to be in a anteverted position. No adnexal masses were palpated. Next a bivalve speculum was placed in the patient's vagina. Single-tooth tenaculum was used to grasp the anterior lip of the cervix. The uterus was sounded to 7 cm. The kroner uterine manipulator was then inserted through the cervix and the balloon was inflated. The single-tooth tenaculum is removed speculum was removed gloves were changed and attention was turned to the abdomen. A small stab incision was made just above the umbilicus with a scalpel. A 5 mm disposable bladeless trocar was then inserted into the peritoneal cavity under direct visualization. Once inside, pneumoperitoneum was achieved with CO2 gas. The insert was removed and the camera was placed. Intraperitoneal placement was confirmed. No bleeding was noted. Next the patient was placed in Trendelenburg position. A small stab incision was made suprapubically and a 5 mm disposable bladeless trocar was inserted into the peritoneal cavity under direct visualization. Once inside pelvic contents were inspected. Next a bipolar Kleppinger instrument was placed through the inferior trocar and the midportion of each tube was brought away from other structures and completely fulgurated on approximate 2-3 cm segment of each tube. Excellent hemostasis was noted. Pictures were taken. Pneumoperitoneum was released after the inferior trocar was removed under direct visualization. The upper trocar was then removed. The skin incisions were then closed with 4-0 Vicryl suture in a subcuticular fashion. Incisions were then injected with quarter percent Marcaine. Approximately 7 mL were used. Next the kroner uterine manipulator was removed. Minimal bleeding was noted. All sponge and needle counts are correct. The patient is then taken to recovery room in stable condition.
[2024-01-19] MEDS: HYDROmorphone 0.5 MG/0.5 ML SYRINGE IVP ONE (09:53)
[2024-01-19] MEDS: MEPERIDINE 50 MG/ML SYRINGE IVP ONE (10:05)
[2024-01-19 10:13] VITALS: TEMP 98
[2024-01-19 11:53] VITALS: BP 110/73; PULSE 64
== END 2024-01-19 11:47 | disposition home or self-care (01) ==
LOC: OR 07:26
PROVIDERS: ATTEND Obstetrics & Gynecology
DX: Z30.2 Encounter for sterilization (principal); F17.210 Nicotine dependence, cigarettes, uncomplicated; F10.90 Alcohol use, unspecified, uncomplicated
CPT/HCPCS: 58670; J2250; J0330; J1100; J2175; J2405; J2001; J3010; J3490; J1885; J2704; J1170; J0665